=== PATIENT | female | born 1955 | race Caucasian/White ===

== ENCOUNTER 2024-01-27 23:16 | Emergency (ER) | payer OTHER ==
[~2024-01-27] VITALS: Ht 160 cm; Wt 60.0 kg
[2024-01-27 23:48] VITALS: O2SAT 98
[2024-01-28 03:00] VITALS: BP 148/66; PULSE 65; RESP 16; TEMP 36.83628; O2SAT 100
== END 2024-01-28 03:00 | disposition home or self-care (01) ==
LOC: ER 23:16
DX: S42.255A Nondisplaced fracture of greater tuberosity of left humerus, initial encounter for closed fracture (principal); Z88.5 Allergy status to narcotic agent; Z98.890 Other specified postprocedural states; W01.0XXA Fall on same level from slipping, tripping and stumbling without subsequent striking against object, initial encounter; Y93.89 Activity, other specified; Y92.89 Other specified places as the place of occurrence of the external cause; Y99.8 Other external cause status
CPT/HCPCS: 73030; 73060; 73562; 99284; A4565